=== PATIENT | female | born 1960 | race Caucasian/White ===

== ENCOUNTER 2022-06-01 15:13 | Emergency (ER) | payer SELFPAY ==
--- NOTE | ~2022-06-01 | XR_ITS ---
EXAM: XR ankle RT min 3V, XR foot RT min 3V DATE: 06/01/2022 15:47 HISTORY: ANT AND LAT PAIN, STEPPED IN HOLE-HYPERDORSIFLEX . COMPARISON: None available. FINDINGS: Normal mineralization. Oblique mildly comminuted fracture of the proximal right second met atarsal shaft, with mild lateral angulation. Oblique fracture of the distal right third metatarsal sh aft, with minimal lateral displacement. Transverse nondisplaced fracture of the proximal aspect of th e right fourth proximal phalange. No lytic or blastic lesion. Joint spaces are maintained. No erosion or periosteal change. Forefoot soft tissue swelling. IMPRESSION: Mildly comminuted, mildly angulated fracture of the proximal right second metatarsal shaf t. Oblique minimally displaced fracture of the distal right third metatarsal shaft. Transverse nondis placed fracture of the proximal right fourth phalange. Reviewed, dictated and finalized at location K. IMPRESSION: Mildly comminuted, mildly angulated fracture of the proximal right second metatarsal shaft. Oblique minimally displaced fracture of the distal rig ht third metatarsal shaft. Transverse nondisplaced fracture of the proximal rig ht fourth phalange.
[2022-06-01 15:23] VITALS: BP 143/84; PULSE 91; RESP 16; TEMP 36.6; O2SAT 95
--- NOTE | 2022-06-01 15:57 | ED.LOWEXIN ---
HPI - Extremity Injury (Lower) General Chief Complaint: Extremity Injury, Lower Stated Complaint: Fall Injury/Right Foot/Ankle Time Seen by Provider: 06/01/22 15:57 Source: patient, RN notes reviewed and old records reviewed Mode of arrival: ambulatory Limitations: no limitations History of Present Illness HPI Narrative: 62 year old female accompanied by grand daughter and met by son here at clinic with complaints of patient falling at home last evening in the yard when she stepped in a hole in the yard and her foot bent back and she fell. Patient is unable to put weight on her right foot with foot swollen. Patient reports that she has iced and elevated her foot and has taken OTC pain medication. MD complaint: ankle injury and foot injury Onset (ago): day(s) (last evening at 1999) Injury: Right: ankle and foot Place: other (in yard at her home) Severity scale (1-10): 9 Exacerbating factors: movement Treatments prior to arrival: cold therapy, NSAIDS (and Tylenol) and other (elevated) Related Data Home Medications Medication Instructions Recorded Confirmed No Home Medications 06/01/22 06/01/22 Allergies Allergy/AdvReac Type Severity Reaction Status Date / Time No Known Drug Allergies Allergy Verified 04/12/13 11:20 Review of Systems Review of Systems: CONSTITUTIONAL: Denies fever, chills, or sweats. EYES: Denies visual changes, redness, or discharge. ENT: Denies rhinorrhea, congestion, sore throat, or otalgia. CARDIOVASCULAR: Denies chest pain, palpitations, or edema. RESPIRATORY: Denies cough or dyspnea. GASTROINTESTINAL: Denies abdominal pain, nausea, vomiting, or diarrhea. GENITOURINARY: Denies dysuria or hematuria. SKIN: Denies rash or itching. MUSCULOSKELETAL: Denies back pain,positive for acute pain right foot and ankle, or myalgia. NEUROLOGIC: Denies headache, numbness, or weakness. PSYCHIATRIC: Denies anxiety or depression. All systems reviewed & are unremarkable except as noted in HPI and below PMFSH Past Medical History Medical History (Updated 06/05/22 @ 18:17 by Gay Pat NP) No active medical problems Surgical History Surgical History (Updated 06/05/22 @ 18:17 by Gay Pat NP) No history of previous surgery Social History Social History (Updated 06/05/22 @ 18:12 by Gay Pat NP) Smoking status: Current every day smoker Tobacco type: cigarettes Alcohol intake: current Alcohol use details: social Substance use type: does not use Living arrangements: with family Gender identity (if verbalized by the patient): Female Comments At time of signature, agree with nursing past medical, surgical, social and family history. There is no relevant family history pertinent to the presenting complaint Exam Narrative: GENERAL: Well-appearing, well-nourished, and in some acute distress from injury. HEAD: Normocephalic, atraumatic. EYES: PERRLA and EOMI. ENT: Nares clear, no rhinorrhea or epistaxis. Mucous membranes moist.TM's normal with good light reflex, throat paink with no lesions or swelling. NECK: Supple.no lymphadenopathy CHEST: Clear to auscultation. No respiratory distress.SAO2 95% on room air. HEART: Regular rate and rhythm. No murmur heard. Normal peripheral pulses. ABDOMEN: Soft, nontender, nondistended, normal active bowel sounds. EXTREMITIES: Normal range of motion. No edema.Exception noted to right foot which is swollen and painful from fall last pm, strong right pedal pulse present, patient denies any tingling or numbness to right foot, incresed pain with any movement of right foot. SKIN: Warm, dry, no rash. NEURO: No focal deficits. Alert and oriented x3. Course Course Level of Care: Express Care Visit Vital Signs Vital signs: Vital Signs Temperature 36.6 C 06/01/22 15:23 Pulse Rate 91 06/01/22 15:23 Respiratory Rate 16 06/01/22 15:23 Blood Pressure 143/84 H 06/01/22 15:23 Pulse Oximetry 95 06/01/22 15:23 Oxygen Delivery Breanna
== END 2022-06-01 17:03 | disposition home or self-care (01) ==
PROVIDERS: Emergency Provider Registered Nurse
DX: S92.321A Displaced fracture of second metatarsal bone, right foot, initial encounter for closed fracture (principal); S92.331A Displaced fracture of third metatarsal bone, right foot, initial encounter for closed fracture; W17.2XXA Fall into hole, initial encounter; S92.514A Nondisplaced fracture of proximal phalanx of right lesser toe(s), initial encounter for closed fracture; F17.210 Nicotine dependence, cigarettes, uncomplicated
CPT/HCPCS: 29515; 73610; 73630; 99214; G0463

== ENCOUNTER 2023-02-17 10:33 | Emergency (ER) | payer SELFPAY ==
--- NOTE | ~2023-02-17 | XR_ITS ---
XR chest 2V DATE: 02/17/2023 11:12 INDICATION: Cough, congestion, shortness of breath with exertion. Smoker. TECHNIQUE: 2 views COMPARISON: None FINDINGS: Normal heart size. No hilar or mediastinal enlargement. Moderate hyperinflation of the lungs. No pulmonary infiltrate or consolidation, pleural effusion or p ulmonary vascular congestion or pneumothorax is detected. Diffuse osteopenia. IMPRESSION: Bilateral moderate hyperinflation; no active cardiac pulmonary disease Reviewed, dictated and finalized at location [] IMPRESSION: Bilateral moderate hyperinflation; no active cardiac pulmonary dise ase
[2023-02-17 10:45] VITALS: BP 140/76; PULSE 105; RESP 24; TEMP 37.5; O2SAT 95
--- NOTE | 2023-02-17 11:10 | PC.NURSE ---
PT AMBULATED TO XRAY APPROXIMATELY 30 FT. PT HAD SOME SHORTNESS OF BREATH AND PULSE OX DROPPED TO 91%. PROVIDER NOTED OF STATUS
--- NOTE | 2023-02-17 11:21 | ED.URI ---
HPI - URI/Sore Throat General Chief Complaint: Upper Respiratory Infection Stated Complaint: cold/flu Source: patient and RN notes reviewed Mode of arrival: ambulatory Limitations: no limitations History of Present Illness HPI Narrative: 62-year-old female presents to the [facility] complaining cough and upper respiratory symptoms. Patient stated her symptoms started about 2-3 days ago and she noticed a cough. Patient states she has productive cough that is worse at night. Patient denies any shortness of breath at rest but states feeling out of breath when she is exerting herself. Patient denies any fevers. Patient states having body aches and chills. Patient denies any chest pain. Patient states she has been smoking for the last 20-25 years. States he quit smoking about 2 weeks ago. Patient has been taking Penelope-[place] Plus for symptom management. Related Data Allergies Allergy/AdvReac Type Severity Reaction Status Date / Time codeine AdvReac Intermediate Nausea and Verified 02/17/23 11:03 Vomiting Review of Systems Review of Systems: CONSTITUTIONAL: Denies fever. She complains of body aches and chills. EYES: Denies visual changes, redness, or discharge. ENT: Denies otalgia. Patient states having a sore throat when coughing. CARDIOVASCULAR: Denies chest pain, palpitations, or edema. RESPIRATORY: Positive for shortness of breath with exertion in cough. GASTROINTESTINAL: Denies abdominal pain, nausea, vomiting, or diarrhea. GENITOURINARY: Denies dysuria or hematuria. SKIN: Denies rash or itching. MUSCULOSKELETAL: Denies back pain, joint pain, or myalgia. NEUROLOGIC: Denies headache, numbness, or weakness. Pertinent positives per HPI. [facility] Past Medical History Medical History (Updated 02/17/23 @ 11:42 by Aimee Zarate, JACKSON) No active medical problems Surgical History Surgical History (Updated 06/05/22 @ 18:17 by Gay Pat NP) No history of previous surgery Social History Social History (Updated 06/05/22 @ 18:12 by Gay Pat NP) Smoking status: Current every day smoker Tobacco type: cigarettes Alcohol intake: current Alcohol use details: social Substance use type: does not use Living arrangements: with family Gender identity (if verbalized by the patient): Female Comments At the time of my signature, I reviewed and agree with the nursing past medical, surgical, social, and family history. There is no relevant family history pertinent to the patient complaint. Exam Narrative: GENERAL: This is a well-nourished, well-developed patient. Patient is ill-appearing. Patient is not in acute distress. HEAD: normocephalic, atraumatic. EYES: Sclera clear/white. Vision is grossly intact. EARS: External ears normal, auditory canals clear and without drainage, TMs normal without perforation. Hearing grossly intact. NOSE: External nose normal with no obvious nasal discharge, nares without redness, no rhinorrhea. THROAT: Mucous membranes moist, mild erythema to posterior pharynx. No exudate is present NECK: Neck supple, non-tender without lymphadenopathy, masses or thyromegaly. CARDIOVASCULAR: Tachycardic rate and rhythm without murmurs, gallops, or rubs. RESPIRATORY: Respiratory rate is tachypneic, regular, nonlabored. Lung sounds are diminished bilaterally with in expiratory rhonchi present. No wheezing. Patient is able to speak in full sentences GASTROINTESTINAL: Abdomen soft, non-tender, nondistended. Bowel sounds are active. No hepato-splenomegaly, or palpable masses. No guarding. SKIN: warm, intact with no suspicious lesions or rash, good texture and turgor. NEURO: awake, alert, and oriented to person, place and time. There were no obvious focal neurologic abnormalities. EXTREMITIES: No clubbing, cyanosis, or edema. No joint tenderness, effusion, or edema noted. BACK: Nontender without deformity or crepitus. No flank tenderness. Course Course Level of C
== END 2023-02-17 11:45 | disposition home or self-care (01) ==
PROVIDERS: Emergency Provider Nurse Practitioner Family
DX: J40 Bronchitis, not specified as acute or chronic (principal); F17.210 Nicotine dependence, cigarettes, uncomplicated
CPT/HCPCS: 71046; 99213; G0463